=== PATIENT | male | born 1960 | race Caucasian/White ===

== ENCOUNTER → 2024-01-09 11:33 | Outpatient (REF) | payer BC, SELFPAY | LOC: HWRAD 11:33 | PROVIDERS: ATTENDING PHYSICIAN Nurse Practitioner Primary Care; FAMILY PHYSICIAN Family Medicine | DX: R10.11 Right upper quadrant pain (principal); R10.31 Right lower quadrant pain; R19.4 Change in bowel habit; K21.9 Gastro-esophageal reflux disease without esophagitis | CPT/HCPCS: 74177; Q9967 ==

== ENCOUNTER → 2024-04-17 14:56 | Outpatient (REF) | payer BC, SELFPAY | LOC: RAD 14:56 | PROVIDERS: ATTENDING PHYSICIAN Internal Medicine Gastroenterology; FAMILY PHYSICIAN Family Medicine | DX: R10.84 Generalized abdominal pain (principal); R10.2 Pelvic and perineal pain | CPT/HCPCS: 74177; Q9967 ==